=== PATIENT | male | born 1970 | race Caucasian/White ===

== ENCOUNTER 2023-09-20 06:41 | Day surgery (SDC) | payer OTHER ==
[~2023-09-20] VITALS: Ht 182.9 cm; Wt 122.5 kg
[2023-09-20] MEDS ORDERED: fentaNYL citrate 0.05 MG/ML VIAL ONE (07:46)
[2023-09-20] MEDS ORDERED: LIDOCAINE 2% 100 MG/5 ML UJET TP ONE (07:46)
[2023-09-20] MEDS ORDERED: fentaNYL citrate 0.05 MG/ML VIAL IVP ONE (09:35)
== END 2023-09-20 10:13 | disposition home or self-care (01) ==
LOC: MOR 06:41 → MMU 06:47 → MOR 10:13
PROVIDERS: ATTEND Internal Medicine Gastroenterology
DX: K62.5 Hemorrhage of anus and rectum (principal); K63.5 Polyp of colon; I12.9 Hypertensive chronic kidney disease with stage 1 through stage 4 chronic kidney disease, or unspecified chronic kidney disease; E11.22 Type 2 diabetes mellitus with diabetic chronic kidney disease; N18.2 Chronic kidney disease, stage 2 (mild); F32.A Depression, unspecified; J44.9 Chronic obstructive pulmonary disease, unspecified; I25.10 Atherosclerotic heart disease of native coronary artery without angina pectoris; E78.00 Pure hypercholesterolemia, unspecified; Z79.82 Long term (current) use of aspirin; Z79.4 Long term (current) use of insulin; Z79.899 Other long term (current) drug therapy; Z98.890 Other specified postprocedural states
CPT/HCPCS: 45385; 82948; J3010